=== PATIENT | female | born 1970 | race Hispanic/Latino ===

== ENCOUNTER 2017-07-25 21:00 | Inpatient (IN) | payer MEDICARE ==
--- NOTE | 2017-07-25 21:34 | C.PDOC ---
History Of Present Illness 46 year old female psychiatric transfer from [facility] presents to the ED for prescreened psychiatric admission for depression. No other acute complaints. Time Seen by Provider: 07/25/17 21:31 Chief Complaint (Nursing): Psychiatric Evaluation History Per: Patient History/Exam Limitations: no limitations Onset/Duration Of Symptoms: Unknown Suicide/Self Injury Attempted (Context): None Associated Symptoms: Depression Past Medical History Reviewed: Historical Data, Nursing Documentation, Vital Signs Vital Signs: Last Vital Signs Temp 98.4 F 07/25/17 21:12 Pulse 67 07/25/17 22:39 Resp 16 07/25/17 22:39 BP 116/75 07/25/17 22:39 Pulse Ox 100 07/25/17 22:39 - Medical History PMH: Anxiety, Bipolar Disorder, Seizures Family History: States: Unknown Family Hx - Social History Hx Alcohol Use: Yes Hx Substance Use: Yes - Immunization History Hx Tetanus Toxoid Vaccination: Yes Hx Influenza Vaccination: Yes Hx Pneumococcal Vaccination: No Review Of Systems Except As Marked, All Systems Reviewed And Found Negative. Constitutional: Negative for: Fever, Chills ENT: Negative for: Ear Pain, Throat Pain Cardiovascular: Negative for: Chest Pain Respiratory: Negative for: Shortness of Breath Gastrointestinal: Negative for: Nausea, Vomiting, Abdominal Pain, Diarrhea Skin: Negative for: Rash Neurological: Negative for: Headache Psych: Positive for: Depression Physical Exam - Physical Exam Appears: Well, No Acute Distress Skin: Normal Color, Warm, Dry Head: Atraumatic, Normacephalic Eye(s): bilateral: Normal Inspection, PERRL, EOMI Oral Mucosa: Moist Tongue: Normal Appearing Lips: Normal Appearing Throat: Normal Neck: Normal, Normal ROM, Supple Cardiovascular: Rhythm Regular Respiratory: Normal Breath Sounds Gastrointestinal/Abdominal: Soft, No Tenderness Back: Normal Inspection Extremity: Normal ROM, Deformity Neurological/Psych: Oriented x3, Normal Speech, Other (Flat affect ) ED Course And Treatment O2 Sat by Pulse Oximetry: 95 Medical Decision Making Medical Decision Making: transfer in from [facility] for psych pre-screened normal exam- flat affect Disposition Doctor Will See Patient In The: Hospital Counseled Patient/Family Regarding: Studies Performed, Diagnosis - Disposition Disposition: HOSPITALIZED Disposition Time: 21:34 Condition: GOOD - Clinical Impression Clinical Impression: Depression - Scribe Statement The provider has reviewed the documentation as recorded by the Scribe The provider has reviewed the documentation as recorded by the Scribe (Billy Wade) Provider Attestation: All medical record entries made by the Scribe were at my direction and personally dictated by me. I have reviewed the chart and agree that the record accurately reflects my personal performance of the history, physical exam, medical decision making, and the department course for this patient. I have also personally directed, reviewed, and agree with the discharge instructions and disposition.
--- NOTE | 2017-07-26 00:59 | PCM.BM ---
<Liza Haji - Last Filed: 07/26/17 00:58> Treatment Plan Problems - Problems identified on initial assessmt Anxiety Date Initiated: 07/25/17 Time Initiated: 23:01 Assessment reference: NA Status: Active Depression Date Initiated: 07/25/17 Time Initiated: 23:01 Assessment reference: NA Status: Active Treatment assets and liabiliti Patient Assests: cooperative, ADL independent, physically healthy, negotiates basic needs Patient Liabilities: financial problems, poor support system, relationship conflicts, substance abuse - Milieu Protocol Maintain good personal hygiene: daily Encourage regular showers, daily Remind patient to perform daily oral care, daily Assist patient to perform ADL's Conduct patient checks and document Observation sheet: Q15 minutes Maintain personal safety: every shift Educate patient to report safety concerns to staff, every shift Monitor environment for contraband/sharps Medication safety: Monitor for expected outcome, potential side effects: every shift, Assess barriers to learning: every shift, Assess readiness for medication education: every shift <Baltazar Ruiz - Last Filed: 07/26/17 21:19> - Diagnosis (1) Bipolar affective disorder, mixed, severe, with psychotic behavior Status: Acute Interventions: 07/26/17 21:20 * Assess/adjust medications daily and /or as needed * See patient on an individual basis 7x/week to assess level of manic behaviors and stability * Discuss risks, benefits, side effects and alternatives of medications * <Chanelle Groves - Last Filed: 07/27/17 11:05> Family Contact Family involvement: Famliy/SO not involved - Goals for Treatment Patient goals for treatment: "I have a lot of problems." Discharge/Continuing Care - Education Needs Education Needs: Patient Medication, Patient Coping Skills - Discharge Discharge Criteria: Tolerates medication w/o severe side effects, Reduction of target symptoms Discharge to:: [facility] - Treatment Team Participation Discussed with Family/SO: No Was Patient/Family/SO present at Treatment Team Meeting: Yes
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
[2017-07-27 05:52] VITALS: O2SAT 98
--- NOTE | 2017-07-27 10:30 | PCM.PYCHPN ---
Psychiatric Progress Note - Psychiatric Progress Note Patient seen today, length of contact: 15 min Patient Chief Complaint: "I am feeling aron" Problems Identified/Issues Discussed: Patient seen and evaluated, chart reviewed and discussed with the nurse. Today pt appeared little bit more organized but remained internally preoccupied about adderall, and her cat. She remained irritable and agitated. However she retracted her 48 hours notice and appeared little better than yesterday. However she remained talkative, circumstantial and continued to have loose associations. She still appears paranoid and delusional. Patient remained isolated, and withdrawn. She is taking selective medications and refusing a lot of other medications. However, she stated taking medications and denies any side effects. Symptoms are improving but need more time to stabilize. Support and psychoeducation given. Medication Change: Yes (increase Neurontin) Medical Record Reviewed: Yes Mental Status Examination - Cognitive Function Orientation: Person, Place, Situation, Time Memory: Intact Attention: WNL Concentration: Poor Association: Loose Fund of Knowledge: Poor - Mood Mood: Anxious - Affect Affect: Broad - Speech Speech: Soft - Formal Thought Process Formal Thought Process: Delusions, Paranoia, Loosening of associations, Flight of ideas - Suicidal Ideation Suicidal Ideation: No - Homicidal Ideation Homicidal Ideation: No Goal/Treatment Plan - Goal/Treatment Plan Need for Continued Stay: Severe depression anxiety, Severe functional impairment Progress Toward Problem(s) and Goals/Treatment Plan: Bipolar I Disorder Mixed severe with psychotic features Sedative hypnotic use disorder severe Attend groups and activities Individual therapy daily Psychoeducation and support daily Encourage compliance with meds and after care Refer to outpatient program Teach healthy lifestyle methods, i.e. diet, exercise, meditation Prozac 20mg PO daily Increase Neurontin 300 mg PO TID Atarax 25 mg PO Q6 PRN Ativan 1 mg PO Q6 PRN Topamaz 100mg PO HS Trazadone 50mg PO HS - Smoking Cessation Smoking Cessation Initiated: No
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
--- NOTE | 2017-07-28 10:59 | PCM.PYCHPN ---
Psychiatric Progress Note - Psychiatric Progress Note Patient seen today, length of contact: 15 min Patient Chief Complaint: "I am feeling better' Problems Identified/Issues Discussed: Patient seen and evaluated, chart reviewed and discussed with the nurse. Today pt appeared much better than before. However she remained talkative, circumstantial and continued to have loose associations. She appears less paranoid and delusional. She remained isolated, and withdrawn. She appears more organized and less internally preoccupied about adderall, and her cat. However, she started taking medications and denies any side effects. Symptoms are improving but need more time to stabilize. Support and psychoeducation given. Medication Change: Yes (increase Neurontin) Medical Record Reviewed: Yes Mental Status Examination - Cognitive Function Orientation: Person, Place, Situation, Time Memory: Intact Attention: WNL Concentration: WNL Association: Loose Fund of Knowledge: WNL - Mood Mood: Anxious - Affect Affect: Broad - Speech Speech: Soft - Formal Thought Process Formal Thought Process: Loosening of associations, Flight of ideas - Suicidal Ideation Suicidal Ideation: No - Homicidal Ideation Homicidal Ideation: No Goal/Treatment Plan - Goal/Treatment Plan Need for Continued Stay: Severe depression anxiety, Severe functional impairment Progress Toward Problem(s) and Goals/Treatment Plan: Bipolar I Disorder Mixed severe with psychotic features Sedative hypnotic use disorder severe Attend groups and activities Individual therapy daily Psychoeducation and support daily Encourage compliance with meds and after care Refer to outpatient program Teach healthy lifestyle methods, i.e. diet, exercise, meditation Prozac 20mg PO daily Increase Neurontin 300 mg PO TID Atarax 25 mg PO Q6 PRN Ativan 1 mg PO Q6 PRN Topamaz 100mg PO HS Trazadone 50mg PO HS Risp[erdal 1 mg po BID - Smoking Cessation Smoking Cessation Initiated: No
[2017-07-29 06:24] VITALS: BP 99/62; PULSE 69; RESP 18; TEMP 98.2
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
[2017-07-29] MEDS ORDERED: Pneumococcal 23-Valent Vaccine IM ONE (10:00)
== END 2017-07-29 11:00 | disposition home or self-care (01) | DRG 885 ==
LOC: C.ER 21:00 → C.5E 21:32
PROVIDERS: ADMIT Psychiatry & Neurology Psychiatry; ATTEND Psychiatry & Neurology Psychiatry
PROC: GZ56ZZZ Individual Psychotherapy, Supportive (ICD-10-PCS; principal; 2017-07-25)
DX: F31.64 Bipolar disorder, current episode mixed, severe, with psychotic features (principal); R56.9 Unspecified convulsions; R45.851 Suicidal ideations; F41.9 Anxiety disorder, unspecified